=== PATIENT | male | born 1995 | race Caucasian/White ===

== ENCOUNTER 2019-02-04 21:47 | Emergency (ER) | payer SELFPAY ==
[~2019-02-04] VITALS: Ht 165.1 cm; Wt 95.2 kg
[2019-02-04] MEDS ORDERED: METPRE4DP PO (23:03)
== END 2019-02-04 23:14 | disposition home or self-care (01) ==
LOC: ER 21:47
DX: L23.7 Allergic contact dermatitis due to plants, except food (principal); Z87.891 Personal history of nicotine dependence
CPT/HCPCS: 99282; J7512